=== PATIENT | female | born 1965 ===

== ENCOUNTER 2017-01-31 14:00 | Outpatient (CLI) | payer BC ==
[2017-01-31 14:14] LABS: BASOPHILS % 0.9 (0.0-1.5); EOSINOPHILS % 4.6 % (0.0-6.8); MEAN CORPUSCULAR HEMOGLOBIN 25.9 pg (28.0-34.0); MEAN CORPUSCULAR VOLUME 85.9 fl (80.0-100.0); MONOCYTES % 4.5 % (0.0-11.0); NEUTROPHILS # 3.9 # k/uL (1.4-7.7)
--- NOTE | 2017-01-31 14:34 | Diagnostic Imaging Report ---
GRETCHEN TRAVIS [facility] [address] [facility] [address] [id number] Report Submission Date: Jan 31, 2017 2:33:33 PM CDT Patient Study Name: STEPHY JENSEN Date: Jan 31, 2017 2:10:40 PM CDT Modality Type: CR Gender: F Description: ABDOMEN : 65 Institution: [facility] Physician: GRETCHEN TRAVIS - JAMEY Abdomen - one-view Clinical history: Right-sided abdominal pain for 3-4 months. Findings: Examination of the abdomen in single AP view demonstrates gas and stool throughout the colon. Degenerative changes and dextroscoliosis are evident in the lumbar vertebrae. Visualized visceral silhouettes are within normal limits. There are no unusual intra-abdominal calcifications. Impression: 1. Lumbar spondylosis and dextroscoliosis. 2. Stool throughout the colon. Electronically signed on Jan 31, 2017 2:33:33 PM CDT by: Bebeto VEGA
[2017-01-31 14:39] LABS: eGFR (African) > 60; eGFR (Non-African) > 60
== END 2017-01-31 14:02 ==
LOC: RAD 14:00
PROVIDERS: ATTEND Family Medicine
DX: R10.84 Generalized abdominal pain (principal)
CPT/HCPCS: 36415; 74000; 80053; 85025